=== PATIENT | female | born 1940 | race Caucasian/White ===

== ENCOUNTER 2017-08-25 08:28 | Inpatient (IN) ==
[2017-08-19 01:30] LABS: Blood Urea Nitrogen 10 mg/dl (8-23)
[2017-08-19 01:32] LABS: Basophils # (Auto) 0 K/mcL (0.0-0.3); Basophils % (Auto) 0.4 % (0.0-2.0); Eosinophils # (Auto) 0.1 K/mcL (0.0-0.7); Lymphocytes % (Auto) 29.5 % (15.5-49.0); Mean Cell Volume 91.6 fL (80.0-100.0); Mean Corpuscular HGB Conc 32.9 g/dL (31.0-36.0); Mean Corpuscular Hemoglobin 30.2 pg (26.0-34.0); Monocytes # (Auto) 0.7 K/mcL (0.1-0.9); Monocytes % (Auto) 10.1 % (1.0-12.0); Platelet Count 297 K/mcL (140-440); RBC 4.84 M/mcL (4.00-5.20); Red Cell Distribution Width 14.6 % (11.5-14.5)
[2017-08-19 02:10] LABS: Appearance,Urine CLEAR; Bacteria,Urine 0 /hpf (0); Bilirubin,Urine NEG (NEG); Color,Urine COLORLESS; Glucose,Urine (UA) NEGATIVE (NEG); Leukocyte Esterase,Urine NEG /uL (NEG); Nitrate,Urine NEG (NEG); Protein,Urine NEG (NEG); Specific Gravity,Urine 1.003 (1.000-1.035); Urine Blood NEG mg/dL (<0.03); Urine RBC < 1 /hpf (0-1); Urine Squamous Epithelial Cell 0 /hpf (0-4); Urine WBC < 1 /hpf (0-4); Urobilinogen,Urine NEG (NEG)
[~2017-08-25 08:28] MED LIST: CELECOXIB 200 MG CAPSULE PO SCH; KETOROLAC 30 MG, ROPIVACAINE HCL/PF 49.5 ML, EPINEPHrine 0.5 MG, 0.9 % SODIUM CHLORIDE ... IJ ONE; PREGABALIN 75 MG CAPSULE PO SCH; ceFAZolin 1 GM VIAL IV SCH; oxyCODONE 10 MG TAB.ER.12H PO SCH
[2017-08-25] MEDS ORDERED: GENTAMICIN SULFATE 800 MG/20 ML VIAL IR ONE (10:48)
[2017-08-25] MEDS ORDERED: ACETAMINOPHEN 1,000 MG/100 ML BOTTLE IV ONE (11:43)
[2017-08-25] MEDS ORDERED: PROMETHAZINE 25 MG/ML VIAL IV PRN (11:43)
[2017-08-25] MEDS ORDERED: fentaNYL 100 MCG/2 ML VIAL IV PRN (11:43)
[2017-08-25] MEDS ORDERED: LACTATED RINGERS 250 ML IV PRN (11:43)
[2017-08-25] MEDS ORDERED: BENZOCAINE/MENTHOL 1 LOZENGE PO PRN ×2 (11:43→11:53)
[2017-08-25] MEDS ORDERED: FLUMAZENIL 0.1 MG/ML ML IV PRN (11:43)
[2017-08-25] MEDS ORDERED: ONDANSETRON 4 MG/2 ML VIAL IV PRN ×2 (11:43→11:53)
[2017-08-25] MEDS ORDERED: IPRATROPIUM/ALBUTEROL 3 ML AMPUL.NEB NEB PRN (11:43)
[2017-08-25] MEDS ORDERED: MEPERIDINE 25 MG/ML SYRINGE IV PRN (11:43)
[2017-08-25] MEDS ORDERED: diphenhydrAMINE 50 MG/ML VIAL IV PRN (11:43)
[2017-08-25] MEDS ORDERED: NALOXONE HCL 0.4 MG/ML VIAL IV PRN (11:43)
[2017-08-25] MEDS ORDERED: LACTATED RINGERS 1,000 ML IV SCH (11:45)
[2017-08-25] MEDS ORDERED: MAGNESIUM HYDROXIDE 30 ML ORAL.SUSP PO PRN (11:53)
[2017-08-25] MEDS ORDERED: TRANEXAMIC ACID 1,000 MG/10 ML VIAL IV ONE ×2 (11:53→15:29)
[2017-08-25] MEDS ORDERED: BISACODYL 10 MG SUPP.RECT PR PRN (11:53)
[2017-08-25] MEDS ORDERED: POLYETHYLENE GLYCOL 3350 17 GM PACKET PO PRN (11:53)
[2017-08-25] MEDS ORDERED: PROMETHAZINE 25 MG/ML VIAL IM PRN (11:53)
[2017-08-25] MEDS ORDERED: HYDROmorphone 2 MG/ML SYRINGE IV PRN (11:53)
[2017-08-25] MEDS ORDERED: METHOCARBAMOL 750 MG TABLET PO PRN (11:53)
[2017-08-25] MEDS ORDERED: ONDANSETRON ODT 4 MG TABLET SL PRN (11:53)
[2017-08-25] MEDS ORDERED: FLEETS ADULT ENEMA PR PRN (11:53)
--- NOTE | 2017-08-25 11:53 | Brief Operative Note ---
Date of procedure: 08/25/17 Pre-op diagnosis: right knee oa Post-op diagnosis: same Procedure: right total knee arthroplasty Grafts/Implants: Yes Anesthesia: spinal Complications: none Surgeon: Nile Rea Geospatial Specialist: Maria Del Rosario Quinonez Estimated blood loss (cc): 150 Tourniquet Time (Minutes): 59 Specimens Removed/Pathology: none sent Condition: stable Disposition: PACU
[2017-08-25] MEDS ORDERED: LORazepam 0.5 MG TABLET PO PRN (11:56)
[2017-08-25] MEDS ORDERED: DILTIAZEM 30 MG TABLET PO PRN (11:56)
[2017-08-25] MEDS ORDERED: FLUTICASONE PROPIONATE SPRAY.NAS NS PRN (11:56)
--- NOTE | 2017-08-25 12:25 | Operative Note ---
DATE OF OPERATION: 08/25/2017 PREOPERATIVE DIAGNOSIS: Degenerative joint disease, right knee. POSTOPERATIVE DIAGNOSIS: Degenerative joint disease, right knee. PROCEDURE: Right total knee arthroplasty. SURGEON: Catherine Rea M.D. TRANSPORT RN SURGEON: Maria Del Rosario Quinonez PA-C. ANESTHESIA: Spinal with LMA assist. ESTIMATED BLOOD LOSS: 150 mL. COMPLICATIONS: None noted. SPECIMENS REMOVED: None. DRAINS: None. TOURNIQUET TIME: 59 minutes at 300 mmHg. IMPLANTS: DePuy Attune patella medialized dome 38 mm cemented AOX; DePuy Attune femoral posterior stabilized size 5, right narrow; DePuy tibial insert fixed bearing posterior stabilized size 5, 5 mm AOX; DePuy fixed bearing size 4 cemented. INDICATIONS: The patient has had a long-standing history of worsening pain in the knee that has failed conservative treatment. Radiographs have confirmed advanced degenerative joint disease. After a long discussion about treatment options, the patient elected to proceed with a knee arthroplasty. The risks and benefits were discussed with the patient in detail including, but not limited to, the risks of anesthesia, problems with the heart or lungs related to anesthesia, infection, compromise or injury to the nerves and blood vessels, deep venous thrombosis, pulmonary embolism, pneumonia, continued pain after surgery, worsening pain or symptoms after surgery, swelling, loss of motion, instability, leg length discrepancy, and need for repeat surgery. DESCRIPTION OF PROCEDURE: The patient was seen in the pre-anesthesia waiting room where all questions were answered and the correct side and site were identified and marked. The patient was transferred to the operating room and administered the anesthetic and given pre-operative antibiotics. A time-out was then called. The extremity was prepped and draped, exsanguinated, and the tourniquet was inflated to 300 mmHg. A midline skin incision was then made with a standard medial parapatellar arthrotomy. Debridement of the menisci, ACL, and PCL was performed followed by balancing releases in the medial lateral plane. We then established intramedullary access to both the femur and tibia in a standard fashion. The femoral guide baldomero was initially placed with the distal femoral guide, pinned into place, and the distal femoral cut was performed and checked with a flat plate. We then turned our attention to the tibia. The intramedullary guide was placed with the proximal tibial cutting block. The block was appropriately positioned off the affected side, varus and valgus was checked with the extra-medullary guide, and the block was pinned into place. The proximal tibial cut was performed and the tibia was prepared for the tibial implant with appropriate rotation. The tibia, femur, and posterior compartment were debrided of osteophytes, loose bodies, and meniscal fragments We then used the gap balancing technique to balance extension with the first two cuts and good balancing was obtained with a 10 millimeter gap block. We turned our attention back to the femur and used the referencing block and implant to size appropriately. Using the gap balancing technique for the flexion space we set our rotation of the femur off the tibial cut. Anesthesia gave the patient 1 gram of Tranexamic Acid via an intravenous route. We placed the 4 in 1 cutting block and made anterior, posterior, and chamfer cuts. Box plasty cuts were then made in a standard fashion for the posterior stabilized prosthesis. We then completed osteophyte release and posterior capsule release from the posterior compartment. Trials were placed and we chose the polyethylene insert thickness that provided the best stability in all planes. With the trials in place, we did a measured resection for a resurfacing patella. We sized the patella and placed the patella trial and performed a lateral facetectomy with the saw and rongeur. Good tracking was obtained. We removed all trials, irrigated and dried all cut surfaces. We cemented the components into place including tibia, femur and patella. We placed a trial liner and held the knee in full extension with the patella compressed while the cement cured. We then removed all excess cement and placed the final polyethylene tibiofemoral component. Irrigation with 3 liters of antibiotic saline was then performed using jet-lavage. We let the tourniquet down and coagulated bleeding vessels. We injected a 100 cubic centimeter volume including Ropivacaine 49.25 cubic centimeters at 5 milligrams per cubic centimeter, Ketorolac 30 milligrams, and Epinephrine 0.5 milligrams into 100 cubic centimeters volume of normal saline. We closed the retinaculum with #2 Stratafix and 0 Vicryl. We closed the subcutaneous tissue and skin in layers out to ross in the skin. A sterile pressure dressing was applied. All needle and sponge counts were correct. The patient was transferred to the recovery room in stable condition. MADALYN:dieter Job ID: [id number] Doc ID: [id number] Catherine Rea MD
--- NOTE | 2017-08-25 13:00 | XRay Report ---
CLINICAL INFORMATION: Postsurgical follow-up TECHNIQUE: AP and lateral portable right knee COMPARISON: None. FINDINGS: Status post right total knee arthroplasty. Femoral and tibial complements are in anatomic positions. There is postsurgical intra-articular gas. IMPRESSION: Status post right total knee arthroplasty Interpreted and Authenticated by: Nile Bradley 08/25/17
[2017-08-25] MEDS: KETOROLAC 15 MG/ML VIAL IV SCH ×2 (13:27→19:06)
[2017-08-25] MEDS: 0.9 % SODIUM CHLORIDE 1,000 ML IV SCH ×2 (13:28→21:42)
[2017-08-25] MEDS: 0.9 % SODIUM CHLORIDE 10 ML SYRINGE IV SCH ×2 (14:39→21:57)
[2017-08-25] MEDS ORDERED: LIDOCAINE HCL/PF 100 MG/5 ML SYRINGE IV ONE (15:29)
[2017-08-25] MEDS ORDERED: MIDAZOLAM 5 MG/5 ML VIAL IV ONE (15:29)
[2017-08-25] MEDS ORDERED: DEXAMETHASONE 10 MG/ML VIAL IV ONE (15:29)
[2017-08-25] MEDS ORDERED: ONDANSETRON 4 MG/2 ML VIAL IV ONE (15:29)
[2017-08-25] MEDS ORDERED: PROPOFOL 200 MG/20 ML VIAL IV ONE (15:29)
[2017-08-25] MEDS: oxyCODONE/APAP 5/325MG TABLET PO PRN ×2 (16:34→21:56)
[2017-08-25] MEDS: ceFAZolin 1 GM VIAL IV SCH (19:06)
[2017-08-25] MEDS: FLECAINIDE 50 MG TABLET PO SCH (19:52)
[2017-08-25] MEDS ORDERED: SIMVASTATIN 20 MG TABLET PO SCH (21:00)
[2017-08-25] MEDS ORDERED: SENNOSIDES 1 TABLET PO SCH (21:00)
[2017-08-25] MEDS ORDERED: MAGNESIUM OXIDE 400 MG TABLET PO SCH (21:00)
[2017-08-25] MEDS ORDERED: MONTELUKAST 10 MG TABLET PO SCH (21:00)
[2017-08-25] MEDS ORDERED: DILTIAZEM 120 MG CAP.XL.24H PO SCH (21:00)
[2017-08-25] MEDS: ASPIRIN 325 MG ENTERIC COATED TABLET PO SCH (21:34)
[2017-08-25] MEDS: ESCITALOPRAM 20 MG TABLET PO SCH (21:35)
[2017-08-25] MEDS: DOCUSATE SODIUM 100 MG CAPSULE PO SCH (21:37)
[2017-08-26] MEDS: KETOROLAC 15 MG/ML VIAL IV SCH ×3 (00:08→12:09)
[2017-08-26] MEDS: ceFAZolin 1 GM VIAL IV SCH (02:03)
[2017-08-26] MEDS: 0.9 % SODIUM CHLORIDE 1,000 ML IV SCH ×2 (04:03→11:59)
[2017-08-26] MEDS: oxyCODONE/APAP 5/325MG TABLET PO PRN ×2 (04:11→09:08)
[2017-08-26] MEDS: 0.9 % SODIUM CHLORIDE 10 ML SYRINGE IV SCH ×2 (05:36→13:41)
[2017-08-26] MEDS ORDERED: ACETAMINOPHEN 500 MG TABLET PO PRN ×2 (06:47→07:45)
--- NOTE | 2017-08-26 07:05 | Discharge Summary ---
Providers - Providers Patient information: Note initiated : 08/26/17 at 7:02 am Service Date, if different from initiated Date: [] Patient: Sonia Plasencia 77 y/o F admitted on 08/25/17 for Right Total Knee Arthroplasty. Chief Complaint: [s/p right TKA Patient is POD #1 s/p right TKA. She reports being unable to bring her toes up toward her head on that side which she states was not present prior to surgery. She denies numbness, tingling or calf pain in either lower extremity. She also denies chest pain or SOB. She states she would prefer to take extra strength Tylenol instead of Percocet as tolerated for pain but is tolerating Percocet okay. She offers no other questions or concerns.] Date of admission: 08/25/17 Discharge date: 08/26/17 Hospitalization Hospital course: Patient was brought to the OR yesterday for a right TKA which went on without complication. She was admitted overnight for observation and pain control. She is unable to dorsiflex her right ankle at this time which will be followed closely. She will d/c to home likely today, possibly tomorrow and follow up in clinic in 10-14 days for post operative care. Discharge diagnosis: knee osteoarthritis Exam - Exam Incision healing: Yes Incision draining: No Incision red: No Incision swollen: No Incision inflamed: No Clean and dry: Yes Weight bearing status: as tolerated (with assistive device) Ortho Discharge - TKA - Patient Instructions Diet: Regular Diet Activity: activity as tolerated, ambulate with assistive device, weight bearing as tolerated Total Knee Protocol: For Total Knee: Start ROM ALFRED with stationary bike or rocking chair. Work on gaining full extension of knee. Posterior dislocation precautions provided. Hip abductor strengthening and gait training instructions provided. Apply Cryocuff as instructed. Dressing Care: May shower in 2 days - Follow Up Plan Follow Up Appointments: Maria Del Rosario Quinonez PA-C [Physician Video Tape Duplicator] - 09/09/17 9:00 am Disposition: Home, Self-Care Prognosis: Fair Rehab Potential: Fair Overall status at discharge: patient is progressing back to baseline - Orders For Discharge Prescriptions: Aspirin [Ecotrin] 325 mg PO BID #60 tab.ec oxyCODONE/APAP [Percocet 5-325 mg] 1 - 2 tab PO Q4HP PRN #60 tab PRN Reason: Pain Level 3-6 Additional Discharge Orders: Physical Therapy at Discharge - TKA Location: Determined By Patient CPM Discharge Order Location: Determined By Patient Walker Location: Determined By Patient Pending Studies Resuscitation Status Full Code Diet Regular Diet Start ThuAug 25 Dinner Aspirin (Ecotrin) 325 mg PO BID [facility] Last Admin: 08/25/17 21:34 Dose: 325 mg Diltiazem HCl (Cardizem Cd) 120 mg PO [facility] Last Admin: 08/25/17 19:52 Dose: 120 mg Docusate Sodium (Colace) 100 mg PO BID [facility] Last Admin: 08/25/17 21:37 Dose: Not Given Escitalopram Oxalate (Lexapro) 20 mg PO DAILY [facility] Last Admin: 08/25/17 21:35 Dose: 20 mg Flecainide Acetate (Tambocor) 150 mg PO BID [facility] Last Admin: 08/25/17 19:52 Dose: 150 mg Sodium Chloride (Sodium Chloride 0.9%) 1,000 mls @ 125 mls/hr IV .Q8H [facility] Last Admin: 08/26/17 04:03 Dose: Infusion: 08/25/17 21:50 Dose: 0 mls/hr Admin: 08/25/17 21:42 Dose: Admin: 08/25/17 13:28 Dose: 125 mls/hr Ketorolac Tromethamine (Toradol) 15 mg IV Q6 [facility] Stop: 08/27/17 06:01 Last Admin: 08/26/17 05:36 Dose: 15 mg Admin: 08/26/17 00:08 Dose: 15 mg Admin: 08/25/17 19:06 Dose: 15 mg Admin: 08/25/17 13:27 Dose: 15 mg Magnesium Oxide (Magnesium Oxide) 400 mg PO [facility] Last Admin: 08/25/17 21:34 Dose: 400 mg Montelukast Sodium (Singular) 10 mg PO [facility] Last Admin: 08/25/17 21:34 Dose: 10 mg Oxycodone/Acetaminophen (Percocet 5-325 Mg) 0 tab PO Q4HP PRN PRN Reason: PAIN LEVEL 3-6 Last Admin: 08/26/17 04:11 Dose: 1 tab Admin: 08/25/17 21:56 Dose: 1 tab Admin: 08/25/17 16:34 Dose: 1 tab Senna (Senokot) 2 tab PO HS [facility] Last Admin: 08/25/17 21:37 Dose: Not Given Simvastatin (Zocor) 20 mg PO HS [facility] Last Admin: 08/25/17 19:52 Dose: 20 mg Sodium Chloride (Saline Flush) 10 ml IV Q8 [facility] Last Admin: 08/26/17 05:36 Dose: 10 ml Admin: 08/25/17 21:57 Dose: 10 ml Admin: 08/25/17 14:39 Dose: Not Given Throat Lozenges (Cepacol) 1 lozenge PO PRN PRN PRN Reason: Sore Throat Last Admin: 08/26/17 04:12 Dose: 1 lozenge Exam Vital signs: Temp Pulse Resp BP Pulse Ox 97.7 F 62 16 125/74 94 08/26/17 04:00 08/26/17 04:00 08/26/17 04:00 08/26/17 04:00 08/26/17 04:00 Musculoskeletal: other (right knee: 0-10 extension/70-80 flexion. unable to dorsiflex. Full plantar flexion/eversion/inversion right ankle. Full AROM LLE. No calf tenderness. NVI b/l LE. Sensory grossly intact throughout. Motor grossly intact) Neurologic: sensation intact to touch Psychiatric: oriented to person, place and time Additional findings: knee x-ray reviewed shows total arthroplasty intact, in good alignment. No bony injury or other acute abnormalities are identified.
[2017-08-26] MEDS ORDERED: OMEPRAZOLE 20 MG CAPSULE PO SCH (07:30)
[2017-08-26] MEDS ORDERED: LEVOTHYROXINE 75 MCG TABLET PO SCH (07:30)
[2017-08-26] MEDS ORDERED: LORATADINE 10 MG TABLET PO SCH (09:00)
[2017-08-26] MEDS ORDERED: MONTELUKAST 10 MG TABLET PO SCH (09:00)
[2017-08-26] MEDS: ASPIRIN 325 MG ENTERIC COATED TABLET PO SCH (09:34)
[2017-08-26] MEDS: ESCITALOPRAM 20 MG TABLET PO SCH (09:34)
[2017-08-26] MEDS: DOCUSATE SODIUM 100 MG CAPSULE PO SCH (09:34)
[2017-08-26] MEDS: FLECAINIDE 50 MG TABLET PO SCH (09:35)
== END 2017-08-26 15:30 | disposition home or self-care (01) | DRG 470 ==
LOC: MEDSUR 08:28
PROVIDERS: ADMIT Orthopaedic Surgery Sports Medicine; ATTEND Orthopaedic Surgery Sports Medicine